=== PATIENT | male | born 1980 | race Caucasian/White ===

== ENCOUNTER 2016-06-24 11:22 | Inpatient (IN) | payer MEDICAID ==
--- NOTE | ~2016-06-24 | HP ---
Unit #: [id number] #: [id number] Patient: LINUS GRACE [id number] [place] [address] [id number] I MR#: [id number] NAME: LINUS GRACE ROOM: 86 Age: 36 Sex: M Admission Date: 06/24/2016 : 1980 Attending Physician: Peter Calabrese M.D. Admitting Physician: Peter Calabrese M.D. Primary Care Physician: [place] Doctor Not In System HISTORY AND PHYSICAL HISTORY OF PRESENT ILLNESS Linus is a 36 year old admitted to [facility] because of his continued abuse of alcohol. He is detoxing. He has had a number of admissions to this facility for treatment of the same. PAST MEDICAL HISTORY 1. Long history of alcohol abuse. 2. History of withdrawal seizures. PAST SURGICAL HISTORY Left knee. ALLERGIES Codeine. SOCIAL HISTORY He does not smoke. Drinks up to a fifth of liquor on a daily basis. Has a history of illicit drug use to include heroin and cocaine. FAMILY HISTORY Medically noncontributory. REVIEW OF SYSTEMS CONSTITUTIONAL: No fever or chills. HEENT: Denies any sore throat, ear pain or runny nose. CARDIOVASCULAR: Denies chest pain, irregular heart rhythm or palpitations. CHEST: Denies shortness of breath or cough. No hemoptysis. GASTROINTESTINAL: Denies nausea, vomiting, diarrhea or chronic constipation. ENDOCRINE: Denies history of increased thirst or urination. No recent significant weight loss or gain. GENITOURINARY: Denies dysuria, frequency, or hematuria. SKIN: Denies any rashes. HEMATOLOGIC: Denies history of increased bleeding or bruising. MUSCULOSKELETAL: Denies any hot, swollen joints. No generalized muscle pain. NEUROLOGIC: Denies problems with vision or speech. No frequent, severe headaches. No numbness, tingling or weakness in any extremities. Denies loss of bladder or bowel control. CURRENT MEDICATIONS 1. Detox protocol Unit #: [id number] #: [id number] Patient: LINUS GRACE 2. Paxil 20 mg q day 3. Tegretol XR 200 mg b.i.d. PHYSICAL EXAMINATION GENERAL: Alert, well-nourished, in no apparent distress. VITAL SIGNS: Blood pressure 142/96, heart rate 80, respirations 16, temperature 98.6. WEIGHT: 240 pounds. HEIGHT: 5'9". SKIN: Warm and dry without rash or lesion. HEENT: Normocephalic. TMs not viewed. Oral and nasal passages clear. Conjunctivae clear. Pupils equal, round and reactive to light and accommodation. Extraocular movements intact. NECK: Supple without lymphadenopathy or thyromegaly. HEART: Regular rate and rhythm without murmur. LUNGS: Clear. ABDOMEN: Soft, nontender. : Not done. EXTREMITIES: No evidence of cyanosis, clubbing or edema. Moves all extremities without focal deficit. NEUROLOGICAL: Grossly within normal limits. Cranial Nerves: II: Visual chan are intact. III, IV AND : Extraocular movements are intact. Pupils are equal, round and reactive to light. V: Facial sensation is grossly normal. VII: Facial movements and expression are normal. VIII: Auditory acuity grossly intact. IX, X: Uvula is midline. Phonation is normal. XI: Patient shrugs shoulders and turns head normally. XII: Tongue protrudes in the midline. Sensory and Motor Function: Sensory and motor sensation is grossly normal. Motor: moves all extremities well. Coordination: Gait is normal. Deep Tendon Reflexes: Intact. IMPRESSION Psychiatric admission RECOMMENDATIONS PSYCHIATRIC: Per psychiatrist. MEDICAL: I see no contraindications to participating in facility's activities. MEDICAL PROGNOSIS Good. MEDICAL CONDITION Stable. Dictated by... Janessa Jacobson P.A.-C. for Kelsy Rios/abhijeet TD: 06/24/2016 23:55 Unit #: [id number] #: [id number] Patient: LINUS GRACE JOB #: [id number] HISTORY AND PHYSICAL Page 1 of 1 X Janessa Jacobson HISTORY AND PHYSICAL
[2016-06-25 09:26] LABS: BASOPHIL# 0.1 X10e3 (0-0.3); BASOPHIL% 1.1 % (0-2.5); EOSINOPHIL# 0.4 X10e3 (0-0.7); EOSINOPHIL% 6.8 % (0.0-7.0); HEMATOCRIT 40.4 % (38.0-50.0); HEMOGLOBIN 13.5 gm/dL (13.0-16.0); LYMPHOCYTE# 1.4 X10e3 (1.0-3.5); LYMPHOCYTE% 24.3 % (17.0-45.0); MEAN CELL VOLUME 87.7 FL (83-96); MEAN CORPUSCULAR HEMOGLOBIN 29.3 PG (28-34); MEAN CORPUSCULAR HGB CONC 33.4 g/dL (30-36); MEAN PLATELET VOLUME 7.7 FL (6.5-11.5); MONOCYTE# 0.6 X10e3 (0-1.0); MONOCYTE% 10.1 % (3.0-12.0); NEUTROPHIL# 3.3 X10e3 (1.5-7.1); NEUTROPHIL% 57.7 % (40-75); PLATELET COUNT 290 X10e3 (140-420); RED BLOOD COUNT 4.61 X10e (3.90-5.60); WHITE BLOOD COUNT 5.8 X10e3 (4.0-10.5)
[2016-06-25 09:48] LABS: ALBUMIN SERUM 3.7 g/dL (3.5-5.0); BILIRUBIN,TOTAL 1.1 mg/dL (0.2-2.0); CALCIUM SERUM 8.4 mg/dL (8.4-10.2); CREATININE SERUM 0.7 mg/dL (0.6-1.4); GLOM FILT RATE Estimated 120.6 mL/min (>60); PROTEIN TOTAL SERUM 6.6 g/dL (6.0-8.3)
[2016-06-25 09:53] LABS: DIFF IND NO
== END 2016-06-25 12:42 | disposition home or self-care (01) | DRG 881 ==
LOC: P1E 11:22
PROVIDERS: Psychiatry & Neurology Psychiatry
DX: F32.9 Major depressive disorder, single episode, unspecified (principal); F13.10 Sedative, hypnotic or anxiolytic abuse, uncomplicated; F10.20 Alcohol dependence, uncomplicated; Z59.0 Homelessness; Z56.0 Unemployment, unspecified; K76.9 Liver disease, unspecified
CPT/HCPCS: 80053; 85025; 86592

== ENCOUNTER 2016-06-30 09:14 | Inpatient (IN) | payer MEDICAID ==
--- NOTE | ~2016-06-30 | HP ---
Unit #: [id number] #: [id number] Patient: LINUS GRACE [id number] [facility] [address] [place] [address] [id number] I MR#: [id number] NAME: LINUS GRACE ROOM: P211 Age: 36 Sex: M Admission Date: 06/30/2016 : 1980 Attending Physician: Peter Calabrese M.D. Admitting Physician: Peter Calabrese M.D. Primary Care Physician: Generic Doctor Not In System HISTORY AND PHYSICAL Linus is a 36-year-old male admitted on 06/30/[address] [place] [address] for detox from alcohol. He had a recent admission on 06/24/2016 for the same. I have reviewed the history and physical from that admission and there are no changes. Dictated by... Patrick Gomze/edith TD: 06/30/2016 15:03 JOB #: [id number] HISTORY AND PHYSICAL Page 1 of 1 X TORO OROURKE APRN HISTORY AND PHYSICAL
== END 2016-07-04 12:30 | disposition home or self-care (01) | DRG 897 ==
LOC: P2S 09:14
PROC: HZ2ZZZZ Detoxification Services for Substance Abuse Treatment (ICD-10-PCS; principal; 2016-06-30)
DX: F10.230 Alcohol dependence with withdrawal, uncomplicated (principal); R45.851 Suicidal ideations; J06.9 Acute upper respiratory infection, unspecified; Z81.8 Family history of other mental and behavioral disorders; Z88.5 Allergy status to narcotic agent

== ENCOUNTER 2016-07-06 05:09 | Inpatient (IN) | payer MEDICAID ==
--- NOTE | ~2016-07-06 | PN ---
Unit #: [id number] #: [id number] Patient: LINUS GRACE [id number] [facility] [address] [place] [address] [id number] I MR#: [id number] NAME: LINUS GRACE ROOM: [facility] Age: 36 Sex: M Admission Date: 07/06/2016 : 1980 Attending Physician: Peter Calabrese M.D. Admitting Physician: Peter Calabrese M.D. Primary Care Physician: Primary Care Physician Lena HARTLEY PROGRESS NOTES DATE 07/09/2016 DISCUSSION Linus says that he is "sweating and really detoxing" although he did not appear to be in active detox and his vital signs are somewhat low this morning. He is alert and fully oriented. His memory and concentration are fair. His thought processes are concrete but goal-directed and non-psychotic. ASSESSMENT Alcohol dependence, major depression. PLAN Will add Seroquel p.r.n. for anxiety and restarted trazodone for depression and insomnia. Dictated by... Kelsy Live/shivam TD: 07/10/2016 11:43 JOB #: [id number] [facility] PROGRESS NOTES Page 1 of 1 X Peter Calabrese MD PROGRESS NOTE
--- NOTE | ~2016-07-06 | DS ---
Unit #: [id number] #: [id number] Patient: LINUS GRACE [id number] [facility] [address] [place] [address] [id number] I MR#: [id number] NAME: LINUS GRACE ROOM: [facility] Age: 36 Sex: M Admission Date: 07/06/2016 : 1980 Discharge Date: 07/10/2016 Attending Physician: Peter Calabrese M.D. Primary Care Physician: Primary Care Physician No DISCHARGE SUMMARY REASON FOR ADMISSION Fuentes is a 36-year-old man with a history of alcohol dependence, who was recently discharged from this facility. He was found intoxicated and had suicidal ideation with a plan to jump [place] [address]. He was not able to contract for safety and was admitted for stabilization. DIAGNOSTIC STUDIES LABORATORY RESULTS: Please see hospital chart. HOSPITAL COURSE The patient was admitted and placed on suicide precautions and alcohol detox protocol. Paroxetine was discontinued, followed by Tegretol, due to the unclear development of an allergy to any of these medications during his previous admission. Further antidepressant medication was not initiated. He had an uneventful period of detox with no adverse effects such as seizures, hallucinations, or delirium, and was discharged in stable condition with followup through [facility]. DISCHARGE DIAGNOSES AXIS I: Alcohol dependence with withdrawal. Major depression. AXIS II: No diagnosis. AXIS III: Alcohol detox, history of upper respiratory infection. AXIS IV: AXIS V: DISCHARGE INSTRUCTIONS Follow up with [facility] and primary care physician. DISCHARGE MEDICATIONS None. CONDITION AT DISCHARGE Fair. PROGNOSIS Fair. DIET AND ACTIVITY Per primary care doctor. Dictated by... Unit #: [id number] #: [id number] Patient: LINUS GRACE Peter Calabrese M.D. [facility]/poonam TD: 07/12/2016 02:50 JOB #: [id number] DISCHARGE SUMMARY Page 1 of 1 X Peter Calabrese MD X DISCHARGE SUMMARY
--- NOTE | ~2016-07-06 | HP ---
Unit #: [id number] #: [id number] Patient: LINUS GRACE [id number] [facility] [address] [place] [address] [id number] I MR#: [id number] NAME: LINUS GRACE ROOM: [facility] Age: 36 Sex: M Admission Date: 07/06/2016 : 1980 Attending Physician: Peter Calabrese M.D. Admitting Physician: Peter Calabrese M.D. Primary Care Physician: Primary Care Physician No HISTORY AND PHYSICAL Linus is a 36 year old who was just discharged from this facility after treatment for his abuse of alcohol. Patient was seen and H and P dated 06/24/16 was reviewed. This is current. No changes. Please see H and P dated 06/24/16. Dictated by... Janessa Jacobson P.A.-C. for Kelsy Rios/edith TD: 07/06/2016 20:59 JOB #: [id number] HISTORY AND PHYSICAL Page 1 of 1 X Janessa Jacobson HISTORY AND PHYSICAL
--- NOTE | ~2016-07-06 | PA ---
Unit #: [id number] #: [id number] Patient: LINUS SOTO [id number] [facility] [address] [place] [address] [id number] I MR#: [id number] NAME: LINUS SOTO ROOM: [facility] Age: 36 Sex: M Admission Date: 07/06/2016 : 1980 Date of Assessment: Attending Physician: Peter Calabrese M.D. Admitting Physician: Peter Calabrese M.D. PSYCHIATRIC ASSESSMENT DATE OF SERVICE 07/06/2016. INFORMANTS The patient, reliable; [facility] [place], reliable. CHIEF COMPLAINT Suicidal and homicidal. HISTORY OF PRESENT ILLNESS Joesph Soto is a 36-year-old man, recently discharged from this facility, who apparently relapsed on alcohol very soon after his discharge. He said that he was suicidal with a plan to jump off a [address] [place] and was highly intoxicated in the emergency room. He was unable to contract for safety and was readmitted for further episode of detox. PAST PSYCHIATRIC HISTORY As noted, the patient was just discharged from this facility, has had multiple admissions here. He has also been at [facility] in the past. FAMILY PSYCHIATRIC HISTORY There is a reported family history of mental illness. SOCIAL HISTORY The patient denied a history of childhood abuse or neglect. He is a high-school graduate who is currently unemployed and homeless. He is erratically been staying at the [facility] or other local [facility] programs. PAST MEDICAL HISTORY The patient complains of dry skin and some pain. He has a questionable history of seizure disorders which appeared to be alcohol related. MEDICATIONS Paxil and Tegretol. ALLERGIES Codeine. SUBSTANCE USE HISTORY As noted, the patient has extensive history of alcohol dependence and experimental use of other drugs. Unit #: [id number] #: [id number] Patient: LINUS SOTO MENTAL STATUS EXAMINATION Joesph presented as a disheveled man who appeared his stated age. He was generally polite and cooperative with the examination. He stood 5 feet 8 inches tall, weighing 240 pounds with a BMI of 36. Vital signs were temperature 98.5, pulse 84, respirations 18, and blood pressure 114/63. His speech was spontaneous and easily understood. His musculoskeletal examination was calm. His mood was depressed and irritable with a congruent affect. He was alert and fully oriented. His memory and concentration were fair to good. Thought processes were goal directed with no psychosis. He reported suicidal ideation and could not contract for safety outside of the hospital. Insight and judgment were fair. Fund of knowledge and abstraction were fair. ASSETS AND LIABILITIES The patient knows local resources and presents voluntarily for treatment. Liabilities include homeless status, frequent relapses, frequent hospitalization. ADMITTING DIAGNOSES AXIS I: Alcohol dependence with withdrawal, uncomplicated, F10.230; major depression. AXIS II: No diagnosis. AXIS III: Upper respiratory infection and alcohol detox. AXIS IV: AXIS V: PSYCHIATRIC PLAN The patient was admitted and placed on suicide precautions and the alcohol detox protocol. During his last admission, he demonstrated an allergic reaction to some medicine, which he claims was Tegretol but the medical assistant per diem reported was Paxil. I will discontinue both of these medications for safety sake, and monitor him closely for further needs. He will enroll in dual diagnosis groups and activities. Treatment goals are resolution of intoxication, resolution of SI, improvement in insight, and improvement in coping skills. DISCHARGE PLANNING Follow [facility] with [facility]. ESTIMATED LENGTH OF STAY 5 days. Dictated by... Peter Calabrese M.D. KIRSTEN/poonam TD: 07/07/2016 14:10 JOB #: [id number] Unit #: [id number] #: [id number] Patient: LINUS SOTO PSYCHIATRIC ASSESSMENT Page 1 of 1 X Peter Calabrese MD PSYCHIATRIC ASSESSMENT
--- NOTE | ~2016-07-06 | PN ---
Unit #: [id number] #: [id number] Patient: LINUS GRACE [id number] [facility] [address] [place] [address] [id number] I MR#: [id number] NAME: LINUS GRACE ROOM: [facility] Age: 36 Sex: M Admission Date: 07/06/2016 : 1980 Attending Physician: Peter Calabrese M.D. Admitting Physician: Peter Calabrese M.D. Primary Care Physician: Lena Primary Care Physician ODILIA PROGRESS NOTES DATE 07/07/2016 DISCUSSION Linus is up and around this morning, participating in some activities. He states that he has "no memory" of coming to the hospital but continues to be equivocal about his history of suicidal ideation. He has multiple demands including extra food, something for dry skin, and wants to be off of Tegretol because he believes he is allergic to it. His medical technologist prn during the last admission reported that it was probably the paroxetine that he was allergic to, so as a precaution I will discontinue these medications and we will continue to cover him for seizure activity with benzodiazepines and consider further initiation of treatment when appropriate. ASSESSMENT 1. Alcohol dependence. 2. Major depression. PLAN We will increase portion size and discontinue Tegretol. Other medications will continue unchanged. Dictated by... Peter Calabrese M.D. KIRSTEN/carol TD: 07/10/2016 08:04 JOB #: [id number] Unit #: [id number] #: [id number] Patient: LINUS GRCAE PROGRESS NOTES Page 1 of 1 X Peter Calabrese MD PROGRESS NOTE
[2016-07-06 13:50] LABS: AMPHETAMINE NEG (NEG); BARBITURATES POS (NEG); BENZODIAZEPINES POS (NEG); COCAINE NEG (NEG); MARIJUANA NEG (NEG); OPIATES NEG (NEG); TRICYCLIC ANTIDEPRESSANTS NEG (NEG); U METHADONE NEG (NEG)
== END 2016-07-10 12:50 | disposition home or self-care (01) | DRG 897 ==
LOC: P1E 05:09
PROVIDERS: Psychiatry & Neurology Psychiatry
PROC: HZ2ZZZZ Detoxification Services for Substance Abuse Treatment (ICD-10-PCS; principal; 2016-07-06)
DX: F10.230 Alcohol dependence with withdrawal, uncomplicated (principal); F32.9 Major depressive disorder, single episode, unspecified; J06.9 Acute upper respiratory infection, unspecified
CPT/HCPCS: 80156; 80307

== ENCOUNTER 2016-07-15 07:31 | Inpatient (IN) | payer MEDICAID, OTHER ==
--- NOTE | ~2016-07-15 | PN ---
Unit #: [id number] #: [id number] Patient: PETERSON GRACE [id number] [facility] [address] [place] [address] [id number] I MR#: [id number] NAME: PETERSON GRACE ROOM: [facility] Age: 36 Sex: M Admission Date: 07/15/2016 : 1980 Attending Physician: Peter Calabrese M.D. Admitting Physician: Peter Calabrese M.D. Primary Care Physician: Generic Doctor Not In System [facility] PROGRESS NOTES DATE 07/16/2016 DISCUSSION Peterson is sleeping heavily this morning. He has minimal active detox symptomatology. His mood is depressed with a congruent affect. He is alert and fully oriented. His memory and concentration are fair to good, and his thought processes are logical with no active psychosis. He continues to endorse suicidal ideation. ASSESSMENT 1. Alcohol dependence. 2. Major depression. PLAN Continue current treatment plan. Dictated by... Kelsy LiveH/bzg TD: 07/17/2016 07:20 JOB #: [id number] [facility] PROGRESS NOTES Page 1 of 1 X Peter Calabrese MD PROGRESS NOTE
--- NOTE | ~2016-07-15 | DS ---
Unit #: [id number] #: [id number] Patient: LINUS SOTO [id number] [facility] [address] [place] [address] [id number] MR#: [id number] NAME: LINUS SOTO ROOM: [facility] Age: 36 Sex: M Admission Date: 07/15/2016 : 1980 Discharge Date: 07/24/2016 Attending Physician: Peter Calabrese M.D. Primary Care Physician: Generic Doctor Not In System DISCHARGE SUMMARY REASON FOR ADMISSION Mr. Soto is a 36-year-old man, released from this hospital about 5 days ago. He relapsed on alcohol and developed suicidal ideation. He was readmitted for stabilization. DIAGNOSTIC STUDIES LABORATORY RESULTS: Please see hospital chart. HOSPITAL COURSE The patient was readmitted and placed on the alcohol detox protocol. Antidepressant medication did not appear indicated and the patient declined further treatment. He was partially compliant with treatment in the milieu, although, he did minimal effort at discharge planning. He agreed to seek treatment through a long-term care facility at the time of discharge, but declined to specific referral. DISCHARGE DIAGNOSES AXIS I: Alcohol dependence with withdrawal, uncomplicated. AXIS II: No diagnosis. AXIS III: Alcohol detox. AXIS IV: AXIS V: BODY AFTER ALLERGIES DISCHARGE INSTRUCTIONS The patient to followup with long-term care facility as recommended by the unit social work administrator. DISCHARGE MEDICATIONS None. CONDITION AT DISCHARGE Fair. PROGNOSIS Fair. DIET AND ACTIVITY Ad deepti. Unit #: [id number] #: [id number] Patient: LINUS SOTO Dictated by... Peter Calabrese M.D. [facility]/poonam TD: 10/03/2016 12:21 JOB #: [id number] DISCHARGE SUMMARY Page 1 of 1 X Peter Calabrese MD X DISCHARGE SUMMARY
--- NOTE | ~2016-07-15 | HP ---
Unit #: [id number] #: [id number] Patient: LINUS GRACE [id number] [facility] [address] [place] [address] [id number] I MR#: [id number] NAME: LINUS GRACE ROOM: [facility] Age: 36 Sex: M Admission Date: 07/15/2016 : 1980 Attending Physician: Peter Calabrese M.D. Admitting Physician: Peter Calabrese M.D. Primary Care Physician: Generic Doctor Not In System HISTORY AND PHYSICAL HISTORY OF PRESENT ILLNESS The patient is a 36-year-old male admitted to [facility] on 07/15/2016, for his persistent abuse of alcohol. The patient had a recent admission and History and Physical was completed on June 24, 2016. That H and P has been reviewed. No changes need to be made. Dictated by... Patrick Peterson/lesvia TD: 07/15/2016 16:13 JOB #: [id number] HISTORY AND PHYSICAL Page 1 of 1 X JAMEEL JONES APRN HISTORY AND PHYSICAL
--- NOTE | ~2016-07-15 | PN ---
Unit #: [id number] #: [id number] Patient: LINUS GRACE [id number] [facility] [address] [place] [address] [id number] I MR#: [id number] NAME: LINUS GRACE ROOM: P181 Age: 36 Sex: M Admission Date: 07/15/2016 : 1980 Attending Physician: Peter Calabrese M.D. Admitting Physician: Peter Calabrese M.D. Primary Care Physician: Generic Doctor Not In System [facility] PROGRESS NOTES DATE OF SERVICE: 07/17/2016 DISCUSSION Linus is up and participating in unit groups and activities today, although he still remains somewhat isolated from peers and staff. He has no active detox symptoms today. He does continue to report suicidal ideation. ASSESSMENT Alcohol dependence and major depression. PLAN Continue current treatment plan and work towards discharge. Dictated by... Kelsy LiveH/poonam TD: 07/17/2016 11:00 JOB #: [id number] [facility] PROGRESS NOTES Page 1 of 1 X Peter Calabrese MD PROGRESS NOTE
--- NOTE | ~2016-07-15 | PA ---
Unit #: [id number] #: [id number] Patient: LINUS SOTO [id number] [facility] [address] [place] [address] [id number] I MR#: [id number] NAME: LINUS SOTO ROOM: [facility] Age: 36 Sex: M Admission Date: 07/15/2016 : 1980 Date of Assessment: 07/15/2016 Attending Physician: Peter Calabrese M.D. Admitting Physician: Peter Calabrese M.D. Primary Care Physician: Generic Doctor Not In System PSYCHIATRIC ASSESSMENT DATE OF SERVICE 07/15/2016. INFORMANTS The patient, reliable; [facility], reliable. CHIEF COMPLAINT Intoxication. HISTORY OF PRESENT ILLNESS Linus Soto is a 36-year-old man, released from this hospital about 5 days ago. Since then, he has been homeless and relapsed on alcohol. He stated that he had a plan to jump off the bridge and felt hopeless and helpless. He also had chronic complaints of dysphoria and lack of psychosocial support. PAST PSYCHIATRIC HISTORY The patient was discharged from this facility 5 days ago and has a history of multiple admissions here as well as at [facility]. FAMILY PSYCHIATRIC HISTORY There is a reported family history of mental illness. SOCIAL HISTORY The patient denied a history of childhood abuse or neglect. He is a high-school graduate who is unemployed and currently homeless. He stays at [facility], [facility], or other local [place] [facility] programs or sleeps in the open environment. PAST MEDICAL HISTORY The patient complains of dry skin and nonspecific pain. He has a history of alcohol withdrawal seizures. MEDICATIONS None currently. ALLERGIES Codeine. SUBSTANCE USE HISTORY The patient has extensive history of alcohol dependence and experimental use of other drugs. Unit #: [id number] #: [id number] Patient: LINUS SOTO MENTAL STATUS EXAMINATION [place] presented as a disheveled man, appearing older than his stated age. He stood 5 feet 8 inches tall, weighing 240 pounds. Vital signs; temperature 97.8, pulse 98, respirations 16, and blood pressure 134/77. Speech was soft, but clear. Musculoskeletal examination was calm. Mood was depressed with a flat affect. He was alert and oriented to person, location, and time. Memory and concentration were fair. Thought processes were goal directed with no psychosis. He reported suicidal ideation with a plan to jump off the bridge. Insight and judgment, fair. Fund of knowledge and abstraction, fair. ASSETS AND LIABILITIES The patient knows local resources and is returning voluntarily for treatment. He has insight into the need for treatment. Liabilities include homelessness and lack of followup. ADMITTING DIAGNOSES AXIS I: Alcohol dependence with withdrawal, uncomplicated, F10.230. AXIS II: No diagnosis. AXIS III: Alcohol detox, history of seizures. AXIS IV: AXIS V: PSYCHIATRIC PLAN The patient was readmitted and placed on the alcohol detox protocol. Physical examination and laboratory studies will be repeated as indicated. Treatment goals are resolution of intoxication, improvement in insight, and improvement in coping skills. DISCHARGE PLANNING Follow up with [facility] and [facility] Homeless outreach program. ESTIMATED LENGTH OF STAY 5 days. Dictated by... Peter Calabrese M.D. KIRSTEN/poonam TD: 07/15/2016 13:18 JOB #: [id number] PSYCHIATRIC ASSESSMENT Page 1 of 1 X Peter Calabrese MD X PSYCHIATRIC ASSESSMENT
== END 2016-07-24 15:05 | disposition home or self-care (01) | DRG 897 ==
LOC: P1E 07:31
PROC: HZ2ZZZZ Detoxification Services for Substance Abuse Treatment (ICD-10-PCS; principal; 2016-07-15)
DX: F10.239 Alcohol dependence with withdrawal, unspecified (principal); R45.851 Suicidal ideations; F32.9 Major depressive disorder, single episode, unspecified
CPT/HCPCS: 86592

== ENCOUNTER 2016-07-29 06:00 | Inpatient (IN) | payer OTHER ==
--- NOTE | ~2016-07-29 | HP ---
Unit #: [id number] #: [id number] Patient: LINUS GRACE [id number] [place] [address] [id number] I MR#: [id number] NAME: LINUS GRACE ROOM: P185 Age: 36 Sex: M Admission Date: 07/29/2016 : 1980 Attending Physician: Peter Calabrese M.D. Admitting Physician: Peter Calabrese M.D. Primary Care Physician: Janessa Mathews M.D. HISTORY AND PHYSICAL HISTORY OF PRESENT ILLNESS The patient is a 36-year-old male admitted to [facility] on 07/29/2016 for suicidal ideations and to detox from alcohol. PAST MEDICAL HISTORY Withdrawal seizures PAST SURGICAL HISTORY Left knee SOCIAL HISTORY He is unemployed and homeless. Denies drug and tobacco use. Alcohol amount is unknown. FAMILY MEDICAL HISTORY Noncontributory. ALLERGIES Codeine. CURRENT MEDICATIONS Patient is not on any home medications. REVIEW OF SYSTEMS CONSTITUTIONAL: No fever or chills. HEENT: Denies any sore throat, ear pain or runny nose. CARDIOVASCULAR: Denies chest pain, irregular heart rhythm or palpitations. CHEST: Denies shortness of breath or cough. No hemoptysis. GASTROINTESTINAL: Denies nausea, vomiting, diarrhea or chronic constipation. ENDOCRINE: Denies history of increased thirst or urination. No recent significant weight loss or gain. GENITOURINARY: Denies dysuria, frequency, or hematuria. SKIN: Denies any rashes. HEMATOLOGIC: Denies history of increased bleeding or bruising. MUSCULOSKELETAL: Denies any hot, swollen joints. No generalized muscle pain. NEUROLOGIC: Denies problems with vision or speech. No frequent, severe headaches. No numbness, tingling or weakness in any extremities. Denies loss of bladder or bowel control. PHYSICAL EXAM GENERAL: He is awake, alert and oriented in no acute distress. Unit #: [id number] #: [id number] Patient: LINUS GRACE VITAL SIGNS: Temperature 97.8, heart rate 104, respiration 16, blood pressure 102/78. HEIGHT: 5'9". WEIGHT: 240 pounds. SKIN: Warm and dry without rash or lesion. HEENT: Normocephalic. TMs not viewed. Oral and nasal passages clear. Conjunctivae clear. PERRLA. EOMs intact. NECK: Supple without lymphadenopathy or thyromegaly. HEART: Regular rate and rhythm without murmur. LUNGS: Clear. ABDOMEN: Soft, nontender. : Not done. EXTREMITIES: No evidence of cyanosis, clubbing or edema. Moves all without focal deficit. NEUROLOGICAL: Grossly within normal limits. Cranial Nerves: II: Visual chan are intact. III, IV AND : Extraocular movements are intact. Pupils are equal, round and reactive to light. V: Facial sensation is grossly normal. VII: Facial movements and expression are normal. VIII: Auditory acuity grossly intact. IX, X: Uvula is midline. Phonation is normal. XI: Patient shrugs shoulders and turns head normally. XII: Tongue protrudes in the midline. Sensory and Motor Function: Sensory and motor sensation is grossly normal. Motor: moves all extremities well. IMPRESSION 1. Psychiatric admission. 2. Withdrawal seizures. RECOMMENDATIONS Psychiatric per psychiatrist. MEDICAL: No contraindication to participate in facility activities. MEDICAL PROGNOSIS Good. MEDICAL CONDITION Stable. Dictated by... Patrick Peterson/abhijeet TD: 07/30/2016 02:39 JOB #: [id number] Unit #: [id number] #: [id number] Patient: LINUS GRACE HISTORY AND PHYSICAL Page 1 of 1 X JAMEEL JONES APRN HISTORY AND PHYSICAL
--- NOTE | ~2016-07-29 | DS ---
Unit #: [id number] #: [id number] Patient: LINUS GRACE [id number] [place] [address] [id number] I MR#: [id number] NAME: LINUS GRACE. ROOM: P185 Age: 36 Sex: M Admission Date: 07/29/2016 : 1980 Discharge Date: 08/01/2016 Attending Physician: Peter Calabrese M.D. Primary Care Physician: Janessa Mathews M.D. DISCHARGE SUMMARY REASON FOR ADMISSION Linus is a 36-year-old man, recently discharged, but immediately relapsed on alcohol dependence and did not seek outpatient treatment. He had vague suicidal ideation and was readmitted for stabilization. DIAGNOSTIC STUDIES LABORATORY RESULTS: Please see hospital chart. HOSPITAL COURSE The patient was admitted and placed on the alcohol detox protocol. He had a brief inpatient stay and a bed was found at an out of town rehab facility. The patient denied ever making suicidal statements and denied any recollection thereof. He was discharged in stable condition; however, the patient declined to proceed to the recommended facility and stated that he would go to [facility] instead. DISCHARGE DIAGNOSES AXIS I: Alcohol dependence with withdrawal, uncomplicated; alcohol- induced mood disorder. AXIS II: No diagnosis. AXIS III: Alcohol detox, history of withdrawal seizures. AXIS IV: AXIS V: DISCHARGE INSTRUCTIONS Follow up with the [facility] facility. DISCHARGE MEDICATIONS None. CONDITION AT DISCHARGE Fair. PROGNOSIS Fair. DIET AND ACTIVITY Ad deepti. Dictated by... Peter Calabrese M.D. Unit #: [id number] #: [id number] Patient: LINUS GRACE MR/modl TD: 10/03/2016 12:25 JOB #: [id number] DISCHARGE SUMMARY Page 1 of 1 X Peter Calabrese MD X DISCHARGE SUMMARY
--- NOTE | ~2016-07-29 | PA ---
Unit #: [id number] #: [id number] Patient: LINUS GRACE [id number] [facility] [address] [place] [address] [id number] I MR#: [id number] NAME: LINUS GRACE ROOM: P185 Age: 36 Sex: M Admission Date: 07/29/2016 : 1980 Date of Assessment: 07/30/2016 Attending Physician: Peter Calabrese M.D. Admitting Physician: Peter Calabrese M.D. Primary Care Physician: Janessa Mathews M.D. PSYCHIATRIC ASSESSMENT DATE OF ASSESSMENT 07/30/2016. INFORMANTS Patient, reliable; [facility], reliable. CHIEF COMPLAINT Suicidal ideation. HISTORY OF PRESENT ILLNESS Linus is a 36-year-old man with many admissions to this facility, who just recently was discharged. He apparently was unable to maintain sobriety in the outpatient setting and relapsed quickly. He has suicidal ideation with a plan to jump off the bridge and could not contract for safety. PAST PSYCHIATRIC HISTORY Please see previous records for extensive psychiatric admission history. FAMILY PSYCHIATRIC HISTORY Reported family history of mental illness and alcoholism. SOCIAL HISTORY The patient denied history of childhood abuse or neglect. He is currently homeless and unemployed and has one sister in the area who is supportive. He has been twice and has children who are not in his custody. PAST MEDICAL HISTORY Nonspecific pain and history of alcohol withdrawal seizures. MEDICATIONS None currently. ALLERGIES Codeine. SUBSTANCE ABUSE HISTORY As noted above. MENTAL STATUS EXAMINATION Linus presented as a disheveled man, who appeared older than his stated age. He was cooperative with the examination. Speech was spontaneous and easily understood. Musculoskeletal examination was calm. His mood was Unit #: [id number] #: [id number] Patient: LINUS GRACE depressed with a congruent affect. He was alert and fully oriented. Memory and concentration were fair to good. Thought processes were goal directed with no active psychosis. He had suicidal ideation with a plan to jump off the bridge and was unable to contract for safety. Insight and judgment, fair. Fund of knowledge and abstraction, fair. ASSETS AND LIABILITIES The patient presents voluntarily for treatment and has some supportive family locally. Liabilities include chronic admissions and chronic alcoholism. ADMITTING DIAGNOSES AXIS I: Major depression, alcohol dependence with withdrawal. AXIS II: No diagnosis. AXIS III: Alcohol detox, history of alcohol withdrawal seizures. AXIS IV: AXIS V: PSYCHIATRIC PLAN The patient was admitted and placed on suicide precautions and the alcohol detox protocol. Due to recent allergies, the patient was not placed on any other medications at this time. He will enroll in dual diagnosis groups and activities and physical examination and laboratory studies will be ordered and reviewed. TREATMENT GOALS Resolution of SI, establishment of sobriety, improvement in insight, and improvement in coping skills. DISCHARGE PLAN Follow up with [facility]. ESTIMATED LENGTH OF STAY 5 days. Dictated by... Peter Calabrese M.D. KIRSTEN/poonam TD: 08/11/2016 00:42 JOB #: [id number] PSYCHIATRIC ASSESSMENT Page 1 of 1 X Peter Calabrese MD X PSYCHIATRIC ASSESSMENT
== END 2016-08-01 12:30 | disposition home or self-care (01) | DRG 897 ==
LOC: P1E 11:51
PROC: HZ2ZZZZ Detoxification Services for Substance Abuse Treatment (ICD-10-PCS; principal; 2016-07-29)
DX: F10.239 Alcohol dependence with withdrawal, unspecified (principal); R45.851 Suicidal ideations; F32.9 Major depressive disorder, single episode, unspecified

== ENCOUNTER 2016-08-08 06:35 | Inpatient (IN) | payer OTHER ==
--- NOTE | ~2016-08-08 | DS ---
Unit #: [id number] #: [id number] Patient: LINUS GRACE [id number] [facility] [address] [place] [address] [id number] I MR#: [id number] NAME: LINUS GRACE ROOM: [facility] Age: 36 Sex: M Admission Date: 08/08/2016 : 1980 Discharge Date: 08/13/2016 Attending Physician: Peter Calabrese M.D. Primary Care Physician: Janessa Mathews M.D. DISCHARGE SUMMARY REASON FOR ADMISSION Benjamín is a 36-year-old man with many admissions to this hospital, recently who was discharged last week but apparently relapsed onto alcohol. He continues to be unable to provide housing in the community, but declined offers to go to a long-term care. He was readmitted for stabilization. HOSPITAL COURSE The patient was admitted and placed on the opioid detox protocol and suicide precautions. He did not request or qualify for the re-initiation of an antidepressant medication, and he was cooperative with groups and activities. He continued to express suicidal ideation until the date of discharge, but at that point, he was able to contract for safety in the outpatient setting. DISCHARGE DIAGNOSES AXIS I: Alcohol dependence with withdrawal, uncomplicated. Alcohol- induced mood disorder. AXIS II: No diagnosis. AXIS III: Alcohol withdrawal, resolved. AXIS IV: AXIS V: DISCHARGE INSTRUCTIONS Follow up with [facility] and [facility]. DISCHARGE MEDICATIONS None. CONDITION AT DISCHARGE Fair. PROGNOSIS Fair. DIET AND ACTIVITY Ad deepti. Dictated by... Peter Calabrese M.D. Unit #: [id number] #: [id number] Patient: LINUS GRACE [facility]/modl TD: 08/15/2016 00:04 JOB #: [id number] DISCHARGE SUMMARY Page 1 of 1 X Peter Calabrese MD X DISCHARGE SUMMARY
--- NOTE | ~2016-08-08 | PN ---
Unit #: [id number] #: [id number] Patient: LINUS GRACE [id number] [facility] [address] [place] [address] [id number] I MR#: [id number] NAME: LINUS GRACE ROOM: P177 Age: 36 Sex: M Admission Date: 08/08/2016 : 1980 Attending Physician: Peter Calabrese M.D. Admitting Physician: Peter Calabrese M.D. Primary Care Physician: Kelsy Ceron PROGRESS NOTES DATE OF SERVICE 08/10/2016 DISCUSSION Linus continues to be isolative in his room. His mood is depressed with a congruent affect. He is alert and fully oriented. His memory and concentration are fair. His thought processes are logical with no active psychosis. He does continue to report suicidal ideation. He is not attending groups and activities. He has had a conversation with his psych social worker about the possibility of outpatient treatment and he has preferred to choose a jail house or go back to a mission. ASSESSMENT Major depression, alcohol dependence. PLAN Continue current precautions and detox protocol. Dictated by... Peter Calabrese M.D. [facility]/lesvia TD: 08/12/2016 10:08 JOB #: [id number] ODILIA ASH NOTES Page 1 of 1 X Peter Calabrese MD PROGRESS NOTE
--- NOTE | ~2016-08-08 | PA ---
Unit #: [id number] #: [id number] Patient: LINUS SOTO [id number] [facility] [address] [place] [address] [id number] I MR#: [id number] NAME: LINUS SOTO ROOM: P177 Age: 36 Sex: M Admission Date: 08/08/2016 : 1980 Date of Assessment: 08/09/2016 Attending Physician: Peter Calabrese M.D. Admitting Physician: Peter Calabrese M.D. Primary Care Physician: Janessa Mathews M.D. PSYCHIATRIC ASSESSMENT DATE OF ASSESSMENT 08/09/2016. INFORMANTS The patient, partially reliable; [facility], reliable; [facility], reliable. CHIEF COMPLAINT Suicidal ideation. HISTORY OF PRESENT ILLNESS Linus Soto is a 36-year-old man with multiple admissions to our facility, who left here several days ago. He presented to [facility] reporting suicidal ideation and that he was drinking with friends and they had a good time, but slowly his friends began to "dwindle off and eventually I was alone." He immediately became depressed and began having active suicidal ideation. He had a blood alcohol of 0.380 in the emergency room. He was unable to contract for safety and was readmitted. PAST PSYCHIATRIC HISTORY This is Mr. Soto's tenth admission during the 2016. He has had admissions at [facility] as well. He is typically noncompliant outside of the hospital. FAMILY PSYCHIATRIC HISTORY There is a reported family history of mental illness. He also has a and ex-, who both abuse substances. SOCIAL HISTORY The patient denied a history of childhood abuse or neglect. He is a high-school graduate, who is currently unemployed and homeless and has been staying at local half-way programing. He does have 1 sister locally, who tries to help. PAST MEDICAL HISTORY The patient has dry skin and nonspecific pain. He does report a history of alcohol withdrawal seizures. MEDICATIONS None currently. ALLERGIES Codeine. Unit #: [id number] #: [id number] Patient: LINUS SOTO SUBSTANCE ABUSE HISTORY The patient has extensive history of alcohol dependence. He reports experimenting with other drugs on an erratic basis. MENTAL STATUS EXAMINATION Linus presented as a disheveled man who appeared his stated age. He was somewhat uncooperative with the examination. Speech was soft, but clear. Musculoskeletal examination was calm. His mood was depressed with a decreased range of affect. He was alert and fully oriented with no confusion, loss of memory or concentration, and no psychosis. He reported ongoing suicidal ideation and could not contract for safety. Insight and judgment were fair. Fund of knowledge and abstraction were intact. ASSETS AND LIABILITIES The patient is familiar with local resources and does have a supportive family member. Liabilities include homelessness, lack of stable housing and income. ADMITTING DIAGNOSES AXIS I: Alcohol dependence with withdrawal, uncomplicated; alcohol- induced depressive disorder. AXIS II: No diagnosis. AXIS III: History of seizures, history of alcohol detox. AXIS IV: AXIS V: PSYCHIATRIC PLAN The patient was re-admitted and placed on suicide precautions and the alcohol detox protocol. He will be offered dual diagnosis groups and activities, and a physical examination and laboratory studies will be repeated. TREATMENT GOALS Resolution of intoxication, resolution of SI, improvement in insight, and improvement in coping skills. DISCHARGE PLANNING Follow up with [facility]. ESTIMATED LENGTH OF STAY 5 days. Dictated by... Peter Calabrese M.D. [facility]/poonam TD: 08/11/2016 00:59 JOB #: [id number] Unit #: [id number] #: [id number] Patient: LESLYLINUS CORDERO PSYCHIATRIC ASSESSMENT Page 1 of 1 X Peter Calabrese MD PSYCHIATRIC ASSESSMENT
--- NOTE | ~2016-08-08 | PN ---
Unit #: [id number] #: [id number] Patient: LINUS GRACE [id number] [facility] [address] [place] [address] [id number] I MR#: [id number] NAME: LINUS GRACE ROOM: P177 Age: 36 Sex: M Admission Date: 08/08/2016 : 1980 Attending Physician: Peter Calabrese M.D. Admitting Physician: Peter Calabrese M.D. Primary Care Physician: Kelsy Ceron PROGRESS NOTES DATE OF SERVICE: 08/11/2016 DISCUSSION Linus continues to have moderate detox symptoms this morning. He is a little more active in groups and activities. He is alert and fully oriented with no memory and concentration deficits. There is no psychosis and only vague suicidal ideation. His mood appears improved with a brighter affect. ASSESSMENT Major depression and alcohol dependence. PLAN Continue current treatment plan. Dictated by... Kelsy LiveH/poonam TD: 08/11/2016 12:56 JOB #: [id number] ODILIA PROGRESS NOTES Page 1 of 1 X Peter Calabrese MD PROGRESS NOTE
--- NOTE | ~2016-08-08 | HP ---
Unit #: [id number] #: [id number] Patient: LINUS GRACE [id number] [facility] [address] [place] [address] [id number] I MR#: [id number] NAME: LINUS GRACE ROOM: P177 Age: 36 Sex: M Admission Date: 08/08/2016 : 1980 Attending Physician: Peter Calabrese M.D. Admitting Physician: Peter Calabrese M.D. Primary Care Physician: Janessa Mathews M.D. HISTORY AND PHYSICAL Linus is a 36 year old admitted to [facility] because of his continued abuse of alcohol. He has had numerous admissions to this facility and he was just discharged from this facility after treatment for the same. Patient was seen and H and P dated 07/29/16 was reviewed. This is current. No changes. Please see H and P dated 07/29/16. Dictated by... Janessa Jacobson P.A.-C. for Kelsy Rios/edith TD: 08/08/2016 20:26 JOB #: [id number] HISTORY AND PHYSICAL Page 1 of X Janessa Jacobson HISTORY AND PHYSICAL
== END 2016-08-13 12:39 | disposition home or self-care (01) | DRG 897 ==
LOC: P1E 14:12
PROC: HZ2ZZZZ Detoxification Services for Substance Abuse Treatment (ICD-10-PCS; principal; 2016-08-08)
DX: F10.230 Alcohol dependence with withdrawal, uncomplicated (principal); F10.24 Alcohol dependence with alcohol-induced mood disorder
CPT/HCPCS: 86592

== ENCOUNTER 2016-09-14 12:00 | Inpatient (IN) | payer OTHER ==
--- NOTE | ~2016-09-14 | PN ---
Unit #: [id number] #: [id number] Patient: LINUS GRACE [id number] [facility] [address] [place] [address] [id number] I MR#: [id number] NAME: LINUS GRACE ROOM: [facility] Age: 36 Sex: M Admission Date: 09/14/2016 : 1980 Attending Physician: Peter Calabrese M.D. Admitting Physician: Peter Calabrese M.D. Primary Care Physician: Kelsy Ceron PROGRESS NOTES DATE 09/16/2016 DISCUSSION Upon assessing this patient today he was found lying in his bed appearing in some mild discomfort complaining of mild symptoms of withdrawal at this time as evidenced by restlessness diaphoresis feeling hot from cold and complaining he was "sore." He explains this as mild defused joint aches and pains. At this point in time he states his mood is "alright" and he denies suicidal homicidal ideations at this time. The patient had no further complaints other than that. ASSESSMENT Alcohol dependence with withdrawal uncomplicated. PLAN Continue current medications and detox protocol. Dictated by... MAYO Murdock/abhijeet TD: 09/17/2016 22:21 JOB #: [id number] DOILIA PROGRESS NOTES Page 1 of 1 X ANGELLA GRISSOM PROGRESS NOTE
--- NOTE | ~2016-09-14 | DS ---
Unit #: [id number] #: [id number] Patient: LINUS GRACE [id number] [facility] [address] [place] [address] [id number] I MR#: [id number] NAME: LINUS GRACE ROOM: P175 Age: 36 Sex: M Admission Date: 09/14/2016 : 1980 Discharge Date: 09/19/2016 Attending Physician: Peter Calabrese M.D. Primary Care Physician: Janessa Mathews M.D. DISCHARGE SUMMARY REASON FOR ADMISSION Linus is a 36-year-old man with multiple admissions to our facility for alcohol detox, but no long-term care provided in the outpatient setting. He came in reporting a relapse and had vague suicidal ideation. He was readmitted for stabilization. LABORATORY DATA Please see hospital chart. HOSPITAL COURSE [place] was readmitted and placed on suicide precautions. He had an uneventful period of inpatient detox and no psychiatric medications were initiated. He had no seizures, confusion, or disorientation throughout the hospitalization. On the date of discharge, he was able to contract for safety in the outpatient setting. DISCHARGE DIAGNOSES AXIS I: Alcohol dependence with withdrawal, uncomplicated. AXIS II: No diagnosis. AXIS III: History of withdrawal seizures. AXIS IV: AXIS V: DISCHARGE INSTRUCTIONS The patient to follow up with [facility]. DISCHARGE MEDICATIONS None. CONDITION AT DISCHARGE Fair. PROGNOSIS Fair. DIET AND ACTIVITY Ad deepti. Dictated by... Peter Calabrese M.D. Unit #: [id number] #: [id number] Patient: LINUS GRACE [facility]/modl TD: 10/03/2016 12:25 JOB #: [id number] DISCHARGE SUMMARY Page 1 of 1 X Peter Calabrese MD X DISCHARGE SUMMARY
--- NOTE | ~2016-09-14 | HP ---
Unit #: [id number] #: [id number] Patient: LINUS GRACE [id number] [place] [address] [id number] I MR#: [id number] NAME: LINUS GRACE ROOM: P175 Age: 36 Sex: M Admission Date: 09/14/2016 : 1980 Attending Physician: Peter Calabrese M.D. Admitting Physician: Peter Calabrese M.D. Primary Care Physician: Janessa Mathews M.D. HISTORY AND PHYSICAL HISTORY OF PRESENT ILLNESS Linus is a 36-year-old male admitted on 09/14/2016 to [facility] for detox from alcohol. PAST MEDICAL HISTORY 1. Obesity. 2. Possible cirrhosis of the liver. PAST SURGICAL HISTORY Left knee surgery after an injury. ALLERGIES Tegretol and codeine. SOCIAL HISTORY Denies tobacco or illegal drug use. He does report binge alcohol use. He is currently and homeless. FAMILY HISTORY Noncontributory. REVIEW OF SYSTEMS CONSTITUTIONAL: No fever or chills. HEENT: Denies any sore throat, ear pain or runny nose. CARDIOVASCULAR: Denies chest pain, irregular heart rhythm or palpitations. CHEST: Denies shortness of breath or cough. No hemoptysis. GASTROINTESTINAL: Denies nausea, vomiting, diarrhea or chronic constipation. ENDOCRINE: Denies history of increased thirst or urination. No recent significant weight loss or gain. GENITOURINARY: Denies dysuria, frequency, or hematuria. SKIN: Denies any rashes. HEMATOLOGIC: Denies history of increased bleeding or bruising. MUSCULOSKELETAL: Denies any hot, swollen joints. No generalized muscle pain. NEUROLOGIC: Denies problems with vision or speech. No frequent, severe headaches. No numbness, tingling or weakness in any extremities. Denies loss of bladder or bowel control. CURRENT MEDICATIONS None. PHYSICAL EXAMINATION Unit #: [id number] #: [id number] Patient: LINUS GRACE GENERAL: Alert, oriented, in no acute distress. VITAL SIGNS: Blood pressure 138/88, heart rate 90, respirations 16, temperature 98.8. HEIGHT: 5 feet 9. WEIGHT: 240 pounds. SKIN: Warm and dry without rash or lesion. HEENT: Normocephalic. TMs not viewed. Oral and nasal passages clear. Conjunctivae clear. PERRLA. EOMs intact. NECK: Supple without lymphadenopathy or thyromegaly. HEART: Regular rate and rhythm without murmur. LUNGS: Clear. ABDOMEN: Soft, nontender, without masses or hepatosplenomegaly. : Not done. EXTREMITIES: No evidence of cyanosis, clubbing or edema. Moves all without focal deficit. NEUROLOGICAL: Grossly within normal limits. Cranial Nerves: II: Visual chan are intact. III, IV AND : Extraocular movements are intact. Pupils are equal, round and reactive to light. V: Facial sensation is grossly normal. VII: Facial movements and expression are normal. VIII: Auditory acuity grossly intact. IX, X: Uvula is midline. Phonation is normal. XI: Patient shrugs shoulders and turns head normally. XII: Tongue protrudes in the midline. Sensory and Motor Function: Sensory and motor sensation is grossly normal. Motor: moves all extremities well. Coordination: Gait is normal. Deep Tendon Reflexes: Intact. IMPRESSION 1. Psychiatric admission. 2. Obesity. 3. Possible cirrhosis of the liver. RECOMMENDATIONS PSYCHIATRIC: Per psychiatrist. MEDICAL: No contraindications to participate in facility's activities. MEDICAL PROGNOSIS Good. MEDICAL CONDITION Stable. Dictated by... Patrick Gomez/edith TD: 09/15/2016 18:44 JOB #: [id number] Unit #: [id number] #: [id number] Patient: LINUS GRACE HISTORY AND PHYSICAL Page 1 of 1 X TORO OROURKE APRN HISTORY AND PHYSICAL
--- NOTE | ~2016-09-14 | PA ---
Unit #: [id number] #: [id number] Patient: LINUS SOTO [id number] [facility] [address] [place] [address] [id number] MR#: [id number] NAME: LINUS SOTO ROOM: P175 Age: 36 Sex: M Admission Date: 09/14/2016 : 1980 Date of Assessment: 09/15/2016 Attending Physician: Peter Calabrese M.D. Admitting Physician: Peter Calabrese M.D. Primary Care Physician: Janessa Mathews M.D. PSYCHIATRIC ASSESSMENT JOB NOTE: VERIFY DATE OF SERVICE AND DATE OF ADMISSION. VERIFY CC RECIPIENT. INFORMANTS The patient, he is partially; OLOP, reliable. CHIEF COMPLAINT Suicidal ideation and alcohol dependence. HISTORY OF PRESENT ILLNESS Fuentes Soto is a 36-year-old man with multiple admissions to this facility. He reports that after his last discharge from this facility, he has been three weeks sober prior to relapsing five days ago when niece kicked him out of the house. The patient reports he has been living on the [address] for the past five days and immediately relapsed because everybody had already thinks "he has drunk" and reports he has been using 4 to 5 fifth of vodka per day with last use around 6 p.m. on the night of 09/13/2016. Since relapsing, he has been experiencing and increasing thoughts of killing himself with a plan to obtain heroin and overdose. PAST PSYCHIATRIC HISTORY At this time, this is Mr. Soto's 11th admission during the 2016 calendar year. He also had admissions to [facility] as well. He is typically noncompliant outside of this hospital. FAMILY PSYCHIATRIC HISTORY There is a reported family history of mental illness. He also has an ex-, who abuse substances. SOCIAL HISTORY The patient denies any history of childhood abuse or neglect. He is a high school graduate. Currently, unemployed and homeless and has been staying at shelters when not at his niece's house. He has one sister locally, who tries to help him. PAST MEDICAL HISTORY The patient has dry skin and a nonspecific pain. He does report a history of alcohol withdrawal seizures. MEDICATIONS See medical record. Unit #: [id number] #: [id number] Patient: LINUS SOTO ALLERGIES Codeine. SUBSTANCE ABUSE HISTORY The patient has an extensive history of alcohol dependence. He reports experimenting with other drugs on an erratic basis. MENTAL STATUS EXAM Reveals at this time, a disheveled man, who appeared his stated age. He was cooperative and pleasant during this assessment. His speech was soft, but clear. His mood was depressed and his affect was mood congruent. He was alert and fully oriented with no confusion, loss of memory, or concentration. He currently denied auditory or visual hallucinations and no overt symptoms of psychosis was noted. He did report ongoing suicidal ideation, but stated that he would contract for safety while in this hospital facility. Insight and judgment, fair to poor. Fund of knowledge and abstractions were intact. ASSETS AND LIABILITIES This patient is familiar with local resources and does have a supportive family member. Liabilities include chronic homelessness, lack of stable housing and income. ADMITTING DIAGNOSES AXIS I: Alcohol dependence with withdrawal, uncomplicated. Alcohol- induced depressive disorder. AXIS II: Deferred. AXIS III: History of seizures. History of alcohol detox. AXIS IV: AXIS V: PSYCHIATRIC PLAN The patient was readmitted and placed on suicide precautions and alcohol detox protocol. He will be offered dual diagnosis groups and activities. Physical examination and laboratory studies will be repeated. TREATMENT GOALS Resolution of intoxication, resolution of suicidal ideation, improvement in insight, and improvement in coping skills. DISCHARGE PLANNING Followup with [facility] ESTIMATED LENGTH OF STAY 5 days. Dictated by... Ansley Grissom APRN for Kelsy Live/poonam TD: 09/17/2016 11:58 JOB #: [id number] Unit #: [id number] #: [id number] Patient: LINUS SOTO PSYCHIATRIC ASSESSMENT Page 1 of 1 X ANSLEY GRISSOM PSYCHIATRIC ASSESSMENT
--- NOTE | ~2016-09-14 | DS ---
Unit #: [id number] #: [id number] Patient: LINUS GRACE [id number] [facility] [address] [place] [address] [id number] I MR#: [id number] NAME: LINUS GRACE ROOM: 75 Age: 36 Sex: M Admission Date: 09/14/2016 : 1980 Discharge Date: 09/19/2016 Attending Physician: Peter Calabrese M.D. Primary Care Physician: Janessa Mathews M.D. DISCHARGE SUMMARY REASON FOR ADMISSION Linus presented with a relapse on alcohol after his most recent discharge, stating he was able to stay sober only a few days. He had vague suicidal ideation and was admitted for alcohol detox. LABORATORY DATA Please see hospital chart. HOSPITAL COURSE Linus was readmitted and placed on the alcohol detox protocol. He denied suicidal ideation, intent, or plan after admission and so no further medication interventions were undertaken. He was rather passive, not spending very much time in group or seeking outpatient placement; although, he stated this was his goal for the hospitalization. On the date of discharge, the patient achieved maximum benefit from hospitalization and was discharged home. DISCHARGE DIAGNOSES [place] I: Alcohol dependence with withdrawal, uncomplicated. [place] II: No diagnosis. [place] III: None acute. BODY AFTER AXIS DISCHARGE INSTRUCTIONS Follow up with [facility] and CV programing of the patient's choice to [facility]. DISCHARGE MEDICATIONS None. CONDITION AT DISCHARGE Fair. PROGNOSIS Fair. DIET Ad-deepti. Unit #: [id number] #: [id number] Patient: LINUS GRACE ACTIVITY Ad-deepti. Dictated by... Peter Calabrese M.D. [facility]/poonam TD: 10/05/2016 13:44 JOB #: [id number] DISCHARGE SUMMARY Page 1 of 1 X Peter Calabrese MD X DISCHARGE SUMMARY
[2016-09-17 09:51] LABS: BASOPHIL# 0.1 X10e3 (0-0.3); BASOPHIL% 1.3 % (0-2.5); EOSINOPHIL# 0.1 X10e3 (0-0.7); EOSINOPHIL% 2.4 % (0.0-7.0); HEMATOCRIT 43.9 % (38.0-50.0); HEMOGLOBIN 14.9 gm/dL (13.0-16.0); LYMPHOCYTE# 1.3 X10e3 (1.0-3.5); LYMPHOCYTE% 26.3 % (17.0-45.0); MEAN CELL VOLUME 89.7 FL (83-96); MEAN CORPUSCULAR HEMOGLOBIN 30.4 PG (28-34); MEAN CORPUSCULAR HGB CONC 33.9 g/dL (30-36); MEAN PLATELET VOLUME 8.1 FL (6.5-11.5); MONOCYTE# 0.5 X10e3 (0-1.0); MONOCYTE% 10.6 % (3.0-12.0); NEUTROPHIL# 2.9 X10e3 (1.5-7.1); NEUTROPHIL% 59.4 % (40-75); PLATELET COUNT 262 X10e3 (140-420); RED BLOOD COUNT 4.89 X10e (3.90-5.60); RED CELL DISTRIBUTION WIDTH 13.7 % (11.0-15.5); WHITE BLOOD COUNT 4.9 X10e3 (4.0-10.5)
[2016-09-17 09:54] LABS: ALBUMIN SERUM 3.9 g/dL (3.5-5.0); BILIRUBIN,TOTAL 0.7 mg/dL (0.2-2.0); CALCIUM SERUM 8.9 mg/dL (8.4-10.2); CREATININE SERUM 0.8 mg/dL (0.6-1.4); GLOM FILT RATE Estimated 114.2 mL/min (>60); POTASSIUM 4.4 mmol/L (3.5-5.1); PROTEIN TOTAL SERUM 6.8 g/dL (6.0-8.3)
[2016-09-17 10:08] LABS: DIFF IND NO
[2016-09-18 09:44] LABS: URINE APPEARANCE CLEAR; URINE BILIRUBIN NEG (NEG); URINE BLOOD NEG (NEG); URINE COLOR YELLOW; URINE GLUCOSE NEG (NEG); URINE KETONE NEG (NEG); URINE LEUKOCYTE ESTERASE NEG (NEG); URINE NITRATE NEG (NEG); URINE PROTEIN NEG (NEG); URINE SPECIFIC GRAVITY 1.005 (1.003-1.035); URINE UROBILINOGEN 0.2 MG/DL (NEG)
[2016-09-18 10:12] LABS: AMPHETAMINE NEG (NEG); BARBITURATES NEG (NEG); BENZODIAZEPINES NEG (NEG); COCAINE NEG (NEG); MARIJUANA NEG (NEG); OPIATES NEG (NEG); TRICYCLIC ANTIDEPRESSANTS NEG (NEG); U METHADONE NEG (NEG)
== END 2016-09-19 16:20 | disposition home or self-care (01) | DRG 897 ==
LOC: P1E 13:17
PROVIDERS: Psychiatry & Neurology Psychiatry
PROC: HZ2ZZZZ Detoxification Services for Substance Abuse Treatment (ICD-10-PCS; principal; 2016-09-15)
DX: F10.230 Alcohol dependence with withdrawal, uncomplicated (principal); F10.24 Alcohol dependence with alcohol-induced mood disorder; G40.909 Epilepsy, unspecified, not intractable, without status epilepticus
CPT/HCPCS: 80053; 80307; 81003; 85025; 86592

== ENCOUNTER 2016-09-21 06:00 | Inpatient (IN) | payer OTHER ==
--- NOTE | ~2016-09-21 | HP ---
Unit #: [id number] #: [id number] Patient: LINUS GRACE [id number] [facility] [address] [place] [address] [id number] I MR#: [id number] NAME: LINUS GRACE ROOM: P207 Age: 36 Sex: M Admission Date: 09/21/2016 : 1980 Attending Physician: Peter Calabrese M.D. Admitting Physician: Peter Calabrese M.D. Primary Care Physician: Janessa Mathews M.D. HISTORY AND PHYSICAL Linus is a 36 year old admitted to [address] [place] [address] because of his continued abuse of alcohol. He has had numerous admissions to this facility for the same. Patient was seen and H and P dated 09/15/16 was reviewed. This is current. No changes. Please see H and P dated 09/15/16. Dictated by... Janessa Jacobson P.A.-C. for Kelsy Rios/edith TD: 09/21/2016 17:36 JOB #: [id number] HISTORY AND PHYSICAL Page 1 of 1 X Janessa Jacobson HISTORY AND PHYSICAL
--- NOTE | ~2016-09-21 | CO ---
Unit #: [id number] #: [id number] Patient: LINUS GRACE [id number] [facility] [address] [place] [address] [id number] I MR#: [id number] NAME: LINUS GRACE ROOM: P20 Age: 36 Sex: M Admission Date: 09/21/2016 : 1980 Attending Physician: Peter Calabrese M.D. Primary Care Physician: Janessa Mathews M.D. Requesting Physician: Peter Calabrese M.D. CONSULTATION REPORT REASON FOR CONSULTATION The patient complaint of right upper tooth pain. SUBJECTIVE "I broke my tooth off a couple of months ago and it has been hurting ever since and it just throbs and hurts and aches." OBJECTIVE Vital signs within normal limits. Oral exam reveals tooth right upper molar area broken at gum line. No redness, no swelling, no drainage, no lymphadenopathy. ASSESSMENT Oral pain. PLAN The patient will have hurricane gel 20% to apply four times daily to area but he is aware that upon discharge he needs to consult a dentist. Dictated by... Patrick Jeffrey/abhijeet TD: 09/24/2016 02:03 JOB #: [id number] CONSULTATION REPORT Page 1 of 1 X Arti Vieyra APR X CONSULTATION REPORT
--- NOTE | ~2016-09-21 | DS ---
Unit #: [id number] #: [id number] Patient: LINUS GRACE [id number] [place] [address] [id number] I MR#: [id number] NAME: LINUS GRACE ROOM: P207 Age: 36 Sex: M Admission Date: 09/21/2016 : 1980 Discharge Date: 09/26/2016 Attending Physician: Peter Calabrese M.D. Primary Care Physician: Janessa Mathews M.D. DISCHARGE SUMMARY REASON FOR ADMISSION Linus is a 38-year-old man with chronic history of alcohol dependence, who presented for this hospital complaining of a recent relapse and had vague suicidal thinking. He was unable to contract for safety, but his primary diagnosis was alcohol dependence and he was admitted for detox. DIAGNOSTIC STUDIES LABORATORY RESULTS: Please see hospital chart. HOSPITAL COURSE Linus was admitted and placed on the alcohol detox protocol and suicide precautions. He denied suicidal ideation or the need for an antidepressant medication and so was treated primarily for chemical dependence. He tended to stay away from peers and staff, rarely attending groups and preferring to stay in his room for much of the day. He was somewhat irritable and entitled, and appeared to insist that the social media analyst find his long-term placement for him without his direct participation. I informed him that this was not an effective method of discharge planning and that he would need to be more active, but this fell on deaf ears. On the date of discharge, the patient had not yet found placement, but had reached maximum benefit from hospitalization. DISCHARGE DIAGNOSES AXIS I: Alcohol dependence withdrawal, uncomplicated, F10.230. AXIS II: Antisocial traits. AXIS III: Alcohol withdrawal, resolved. AXIS IV: AXIS V: DISCHARGE INSTRUCTIONS Follow up with [facility] and the chemical dependence program of his choice. DISCHARGE MEDICATIONS None. CONDITION AT DISCHARGE Fair. PROGNOSIS Fair, but will improve with compliance and participation in outpatient treatment. Unit #: [id number] #: [id number] Patient: LINUS GRACE DIET AND ACTIVITY Ad deepti. Dictated by... Peter Calabrese M.D. [facility]/modl TD: 10/06/2016 03:02 JOB #: [id number] DISCHARGE SUMMARY Page 1 of 1 X Peter Calabrese MD X DISCHARGE SUMMARY
--- NOTE | ~2016-09-21 | PN ---
Unit #: [id number] #: [id number] Patient: LINUS GRACE [id number] [place] [address] [id number] I MR#: [id number] NAME: LINUS GRACE ROOM: P207 Age: 36 Sex: M Admission Date: 09/21/2016 : 1980 Attending Physician: Peter Calabrese M.D. Admitting Physician: Peter Calabrese M.D. Primary Care Physician: Janessa Mathews M.D. [facility] PROGRESS NOTES DATE September 23, [address] Peter Calabrese at [facility] DISCUSSION This patient was seen and assessed on September 23, 2016. Upon today's assessment, the patient is found ambulating the hallway. He has complaints of right toothache pain stating that it is in one of his molars. The patient states that he has been going to groups and has been compliant with medications at this time. He reports moderate levels of depression but denies suicidal or homicidal ideations at this time and verbalizes no plan or intent. He reports that he is better than yesterday and stated that he slept all night Saturday night and slept a lot Saturday as well. He reports mild signs and symptoms of withdrawal at this time and states that it is tolerable. A medical consult with medical staff was ordered and related to his tooth pain. Dictated by... MAYO Murdock TD: 09/26/2016 07:54 JOB #: [id number] [facility] PROGRESS NOTES Page 1 of 1 X ANGELLA GRISSOM PROGRESS NOTE
--- NOTE | ~2016-09-21 | PN ---
Unit #: [id number] #: [id number] Patient: LINUS GRACE [id number] [place] [address] [id number] I MR#: [id number] NAME: LINUS GRACE ROOM: P207 Age: 36 Sex: M Admission Date: 09/21/2016 : 1980 Attending Physician: Peter Calabrese M.D. Admitting Physician: Peter Calabrese M.D. Primary Care Physician: Janessa Mathews M.D. [facility] PROGRESS NOTES DATE September 22, [address] Peter Calabrese at [facility] DISCUSSION This patient was seen and assessed on September 22, 2016. Upon today's assessment, the patient reports minimal signs and symptoms of withdrawal at this time, just evidenced by mild diffuse body aches and pains, and some slight nausea, but he denies any vomiting at this time. He has no further complaints and we will continue to monitor him every fifteen minutes for safety and with suicidal precautions. Dictated by... MAYO Murdock TD: 09/26/2016 06:05 JOB #: [id number] [facility] PROGRESS NOTES Page 1 of 1 X ANGELLA GRISSOM PROGRESS NOTE
--- NOTE | ~2016-09-21 | PN ---
Unit #: [id number] #: [id number] Patient: LINUS GRACE [id number] [facility] [address] [place] [address] [id number] I MR#: [id number] NAME: LINUS GRACE ROOM: P207 Age: 36 Sex: M Admission Date: 09/21/2016 : 1980 Attending Physician: Peter Calabrese M.D. Admitting Physician: Peter Calabrese M.D. Primary Care Physician: Kelsy Ceron PROGRESS NOTES DATE OF SERVICE 09/17/2016 DISCUSSION Linus continues have [id number] detox symptoms today. His mood remains depressed with decreased range of affect. He is alert and fully oriented. His memory and concentration are fair. His thought processes were goal directed with no active psychosis. He continues to report some suicidal ideation. He has not made many concrete steps yet toward placement. ASSESSMENT Major depression, alcohol dependence. PLAN Continue current treatment plan. Dictated by... Kelsy Live/abhijeet TD: 09/22/2016 22:57 JOB #: [id number] [facility] PROGRESS NOTES Page 1 of 1 X Peter Calabrese MD X PROGRESS NOTE
[2016-09-23 12:46] LABS: AMPHETAMINE NEG (NEG); BARBITURATES NEG (NEG); BENZODIAZEPINES NEG (NEG); COCAINE NEG (NEG); MARIJUANA NEG (NEG); OPIATES NEG (NEG); TRICYCLIC ANTIDEPRESSANTS NEG (NEG); U METHADONE NEG (NEG)
== END 2016-09-26 14:55 | disposition home or self-care (01) | DRG 897 ==
LOC: P2S 07:12
PROVIDERS: Psychiatry & Neurology Psychiatry
PROC: HZ2ZZZZ Detoxification Services for Substance Abuse Treatment (ICD-10-PCS; principal; 2016-09-21)
DX: F10.239 Alcohol dependence with withdrawal, unspecified (principal); F10.24 Alcohol dependence with alcohol-induced mood disorder; E66.9 Obesity, unspecified; K08.89 Other specified disorders of teeth and supporting structures
CPT/HCPCS: 80307